=== PATIENT | female | born 1955 | race Caucasian/White ===

== ENCOUNTER → 2016-05-22 | Outpatient (CLI) | payer BC | END | disposition home or self-care (01) | LOC: GMA 16:35 | PROVIDERS: ATTEND Nurse Practitioner Family | DX: N30.00 Acute cystitis without hematuria (principal) ==

== ENCOUNTER → 2016-10-06 | Outpatient (CLI) | payer BC | END | disposition home or self-care (01) | LOC: GMAJ 10:21 | PROVIDERS: ATTEND Family Medicine | DX: E03.8 Other specified hypothyroidism (principal) ==

== ENCOUNTER → 2018-11-05 | Outpatient (CLI) | payer BC ==
--- NOTE | 2018-11-07 09:31 | MAM ---
EXAM DESCRIPTION: 3D Screening BILATERAL : Digital Mammography. CLINICAL HISTORY: 63 years Female annual screening . No complaints or personal history of breast cancer. Remote family history of breast cancer. Childbirth. Postmenopausal 30+ years. Currently on HRT.. Lifetime risk of developing breast cancer (Tyrer-Cuzick model)(%): 8.4. COMPARISON: Bilateral 2-D digital mammographic screening 11/20/2012 TECHNIQUE: Bilateral CC and MLO projection full-field images, digital tomosynthesis mammographic technique. Bilateral digital 2-D full-field MLO images. CAD not available for tomosynthesis or 2-D images. FINDINGS: The breast parenchymal density pattern is: Heterogeneously dense breast tissue, which may obscure small masses. No skin thickening or nipple retraction. Microcalcifications scattered bilaterally throughout the dense breast tissue. Left axillary lymph nodes. No new focal, stellate mass or density, focal asymmetry , and no suspicious microcalcifications bilaterally. Stable mammograms compared to prior study. Taking into account, differences in mammographic technique. IMPRESSION: Benign exam. BIRAD CATEGORY: 2 BENIGN FINDINGS. RECOMMENDATIONS: FOLLOW UP: Routine digital bilateral mammographic screening, one year interval from October 2018. Written communication explaining the IMPRESSION and follow-up, will be mailed to the patient and referring health care provider. The FINDINGS and the FOLLOW-UP plan were reviewed in person with the patient after the examination. According to the [employer], yearly mammograms are recommended starting at age 40 and continuing as long as a woman is in good health. Any breast change noted on a breast self-exam should be reported promptly to the patient's healthcare provider. Breast MRI is recommended for women with an approximately 20-25% or greater lifetime risk of breast cancer, including women with a strong family history of breast or ovarian cancer and women who have been treated for Hodgkin's disease. A negative mammographic report should not delay tissue diagnosis in patients with significant clinical history or physical findings. Extremely dense breast tissue limits the sensitivity of digital mammography. Electronically signed by: Randy Pino MD 11/07/2018 9:29 AM CDT
== END ==
LOC: MAMMO 09:39
PROVIDERS: ATTEND Family Medicine
DX: Z12.31 Encounter for screening mammogram for malignant neoplasm of breast (principal)

== ENCOUNTER → 2018-11-05 | Outpatient (CLI) | payer BC | LOC: GMAJ 11:38 | PROVIDERS: ATTEND Family Medicine | DX: D51.0 Vitamin B12 deficiency anemia due to intrinsic factor deficiency (principal); I10 Essential (primary) hypertension; E78.2 Mixed hyperlipidemia; E03.9 Hypothyroidism, unspecified ==

== ENCOUNTER → 2019-08-13 | Outpatient (CLI) | payer BC | LOC: GMAJ 11:30 | PROVIDERS: ATTEND Family Medicine | DX: E03.9 Hypothyroidism, unspecified (principal); I10 Essential (primary) hypertension; E78.2 Mixed hyperlipidemia ==

== ENCOUNTER 2019-11-19 13:40 | Emergency (ER) | payer BC ==
[2019-11-19] MEDS ORDERED: predniSONE 20 MG TAB PO ONE (13:59)
[2019-11-19] MEDS ORDERED: FAMOTIDINE 20 MG TAB PO STA (14:00)
[2019-11-19] MEDS ORDERED: diphenhydrAMINE HCL 25 MG CAP PO ONE (14:00)
--- NOTE | 2019-11-19 14:03 | ED.PDOC ---
History of Present Illness - General Chief Complaint: Allergic Reaction Stated Complaint: poss allergic reaction, whelps Time Seen by Provider: 11/19/19 13:52 Source: patient, family Exam Limitations: no limitations Additional Information: The patient is a 64 year old with PMH as below who presents to the ED complaining of allergic reaction. She states that she has been having intermittent urticaria for the past three weeks. She has been taking antihistamines with mild relief and is awaiting outpatient follow up with an tax manager cpa. She denies any new medications, foods, soaps, detergents, or other exposures. She complains of diffuse urticaria, tongue swelling and mild shortness of breath. No other complaints at this time. - History of Present Illness Allergies/Adverse Reactions: Allergies Cephalexin [From Keflex] Allergy (Verified 11/19/19 13:54) Penicillins Allergy (Verified 11/19/19 13:54) Sulfa Antibiotics Allergy (Verified 11/19/19 13:54) Home Medications: Ambulatory Orders predniSONE 60 mg PO DAILY #15 tab 11/19/19 Review of Systems - Review of Systems Constitutional: Denies: chills, fever EENTM: States: no symptoms reported Respiratory: States: short of breath. Denies: cough, wheezing Cardiology: Denies: chest pain, palpitations Gastrointestinal/Abdominal: Denies: abdominal pain, diarrhea, nausea, vomiting Genitourinary: States: no symptoms reported Musculoskeletal: States: no symptoms reported Skin: States: rash Neurological: States: no symptoms reported Endocrine: States: no symptoms reported Hematologic/Lymphatic: States: no symptoms reported All other Systems: Reviewed and Negative Past Medical History (General) - Patient Medical History Hx Hypertension: Yes Surgical History: no surgical history - Activities of Daily Living Hospice Agency (if applicable):: None - Female History Patient is a Female of Child Bearing Age (10 -59 yrs old): No Family Medical History - Family History Mother Living Status: Physical Exam - Physical Exam General Appearance: Comfortable, No apparent distress Ears, Nose, Throat: normal ENT inspection, normal pharynx, other - no appreciable tongue swelling, airway patent, uvula midline Neck: non-tender, full range of motion, supple, normal inspection Respiratory: lungs clear, normal breath sounds, no respiratory distress, no accessory muscle use Cardiovascular/Chest: normal peripheral pulses, regular rate, rhythm, no edema Gastrointestinal/Abdominal: normal bowel sounds, non tender, soft Extremity: normal range of motion, no pedal edema Neurologic: no motor/sensory deficits, alert, oriented x 3 Skin Exam: rash - diffuse urticaria Progress - Progress Progress: 11/19/19 14:05 Patient presents with urticaria, allergic reaction to unknown exposure. Awaiting AI follow up. No respiratory distress or tongue swelling on my exam, airway is patent. No vomiting or abdominal tenderness. No signs/symptoms of acute anaphylaxis. Will give benadry, pepcid, prednisone, reasssess. 11/19/19 14:40 Patient reassessed, she is feeling better after prednisone and benadryl. Will continue outpatient symptomatic management with benadryl 1-2 q4-6, pepcid BID and prednisone daily. She will follow up with allergy as outpatient. Home care instructions and return indications reviewed. Departure - Departure Clinical Impression: Urticaria Time of Disposition: 14:41 Disposition: Discharge to Home or Self Care Departure Forms: ED Discharge - Pt. Copy, Patient Portal Self Enrollment Instructions: DI for Allergic Rhinitis, Hives (DC) Diet: resume usual diet Activity: increase activity as tolerated Referrals: Brian Bland MD [Primary Care Provider] - 1-2 Weeks Prescriptions: predniSONE 60 mg PO DAILY #15 tab Home Medications: Ambulatory Orders predniSONE 60 mg PO DAILY #15 tab 11/19/19 Comments: Jacob Anderson MD Emergency Medicine Physician Number [id number]
[2019-11-19 14:52] VITALS: BP 121/90; TEMP 96.7; O2SAT 99
== END 2019-11-19 14:45 | disposition home or self-care (01) ==
LOC: ER 13:40
DX: L50.0 Allergic urticaria (principal); I10 Essential (primary) hypertension; Z88.1 Allergy status to other antibiotic agents; Z88.0 Allergy status to penicillin; Z88.2 Allergy status to sulfonamides
CPT/HCPCS: J7512; Q0163

== ENCOUNTER → 2020-05-06 | Outpatient (CLI) | payer BC | LOC: GMAJ 13:09 | PROVIDERS: ATTEND Family Medicine | DX: D51.0 Vitamin B12 deficiency anemia due to intrinsic factor deficiency (principal); I10 Essential (primary) hypertension; E78.2 Mixed hyperlipidemia ==